=== PATIENT | female | born 1945 | race Caucasian/White ===

== ENCOUNTER → 2017-08-15 | Outpatient (CLI) | payer MEDICARE ==
[~2017-08-15] MED LIST: ASPI325; ASPI325 PO; ASPI325EC PO; BAYER BACK & B1 EACH PO; BAYER BACK & BODY PO; BENA20 PO; BENADRYL25 MG PO; CARV25 PO; CEPH500 PO; DAILY VALUE1 EACH PO; DAPS100 PO; DIABETA; ERGO400 PO; FURO40 PO; Ferrous Sulfat325 M2 PO; GLYB2.5 PO; GLYB5; K-TAB ER8 MEQ PO; Lasix40 MG PO; MECL25; MECL25 PO; METF500 PO; METFORMIN HCL1000 MG; METO25 PO; METO25ER; Micro-K10 MEQ PO; OMEP20ER PO; OMEPRAZOLE MAGN20 MG PO; PARO20 PO; POTCHL10ER; POTCHL10ER PO; Percocet 5-3251 EACH PO; SIMV40; SIMV40 PO; SPIR25 PO
[2017-08-15 16:37] LABS: Bilirubin, Urine Neg (Neg); Blood, Urine 1+ (Neg); Glucose Qualitative, Urine Neg (Neg); Ketones, Urine Neg (Neg); Leukocyte Esterase, Urine 3+ (Neg); Nitrite, Urine Pos (Neg); Protein, Urine Neg (Neg); Specific Gravity, Urine 1.015 (1.003-1.022); Urobilinogen, Urine NORM (Normal)
[2017-08-15 16:52] LABS: Appearance, Urine Clear (Clear); Color, Urine Yellow (P-Yellow); White Blood Cells, Urine TNTC /hpf (0-5)
[2017-08-15 16:53] LABS: Bacteria Many /hpf; Red Blood Cells, Urine Not Seen /hpf (0-2); Squamous Epithelial Cells Few /hpf (Few)
[2017-08-15 17:29] LABS: Creatinine, Urine Random 50.6 mg/dL (27.00-270.00); Protein, Urine Random 15.5 mg/dL (0.0-11.9)
== END ==
LOC: OLS 14:14
PROVIDERS: Internal Medicine
DX: I10 Essential (primary) hypertension (principal)
CPT/HCPCS: 81001; 82570; 84156

== ENCOUNTER 2017-12-25 05:55 | Day surgery (SDC) | payer MEDICARE ==
[~2017-12-25] VITALS: Ht 154.9 cm; Wt 89.0 kg
== END 2017-12-25 12:30 | disposition home or self-care (01) ==
LOC: MHTC 05:55
PROC: 0JH606Z Insertion of Pacemaker, Dual Chamber into Chest Subcutaneous Tissue and Fascia, Open Approach (ICD-10-PCS; principal; 2017-12-25)
PROC: 02HK3JZ Insertion of Pacemaker Lead into Right Ventricle, Percutaneous Approach (ICD-10-PCS; principal; 2017-12-25)
PROC: 02H63JZ Insertion of Pacemaker Lead into Right Atrium, Percutaneous Approach (ICD-10-PCS; principal; 2017-12-25)
DX: I49.5 Sick sinus syndrome (principal); R00.1 Bradycardia, unspecified; I10 Essential (primary) hypertension; E11.9 Type 2 diabetes mellitus without complications; I25.10 Atherosclerotic heart disease of native coronary artery without angina pectoris
CPT/HCPCS: 33208; 71046; 93005; 93010; 99152; 99153; C1785; C1898; J0690; J1644; J2250; J3010; J7030; J7040; Q9967

== ENCOUNTER 2021-10-20 14:14 | Emergency (ER) | payer MEDICARE ==
[~2021-10-20] VITALS: Ht 154.9 cm; Wt 82.5 kg
== END 2021-10-20 17:39 | disposition home or self-care (01) ==
LOC: ER 14:14
DX: S00.83XA Contusion of other part of head, initial encounter (principal); Z23 Encounter for immunization; W01.10XA Fall on same level from slipping, tripping and stumbling with subsequent striking against unspecified object, initial encounter; Z79.899 Other long term (current) drug therapy; Z79.84 Long term (current) use of oral hypoglycemic drugs; Z79.82 Long term (current) use of aspirin; I10 Essential (primary) hypertension; I25.10 Atherosclerotic heart disease of native coronary artery without angina pectoris; E11.9 Type 2 diabetes mellitus without complications; E78.00 Pure hypercholesterolemia, unspecified; Z87.891 Personal history of nicotine dependence
CPT/HCPCS: 70450; 72125; 90471; 90714; 99283-25

== ENCOUNTER 2021-10-27 07:58 | Day surgery (SDC) | payer MEDICARE ==
[~2021-10-27] VITALS: Ht 152.4 cm; Wt 82.0 kg
--- NOTE | 2021-10-27 09:02 | NUR ---
10/27/21 0902 W[facility] PT REPORTS "FALLING ON SIDEWALK ON 10/20/21". A RESULT OF THIS FALL PT HAS BRUISES AROUND BILATERAL EYES WITH SOME SCRAPES ON THE LEFT SIDE OF FACE AND FOREHEAD. RIGHT SIDE OF FACE HAS BRUISES BUT REMAINS INTACT. DR BATISTA AND DR KLEIN AWARE AND OKAY WITH PROCEDING.
== END 2021-10-27 09:31 | disposition home or self-care (01) ==
LOC: ORSCSDS 07:58
PROVIDERS: Ophthalmology
PROC: 08RJ3JZ Replacement of Right Lens with Synthetic Substitute, Percutaneous Approach (ICD-10-PCS; principal; 2021-10-27 09:00)
DX: H25.13 Age-related nuclear cataract, bilateral (principal); I25.10 Atherosclerotic heart disease of native coronary artery without angina pectoris; E11.9 Type 2 diabetes mellitus without complications; E66.9 Obesity, unspecified; Z68.36 Body mass index [BMI] 36.0-36.9, adult; Z79.899 Other long term (current) drug therapy; Z79.82 Long term (current) use of aspirin
CPT/HCPCS: 82947; J2001; J2250; J3010; J3301; J7040; V2632

== ENCOUNTER 2021-12-06 08:01 | Day surgery (SDC) | payer MEDICARE ==
[~2021-12-06] VITALS: Ht 154.9 cm; Wt 82.0 kg
== END 2021-12-06 09:48 | disposition home or self-care (01) ==
LOC: ORSCSDS 08:01
PROVIDERS: Ophthalmology
PROC: 08RK3JZ Replacement of Left Lens with Synthetic Substitute, Percutaneous Approach (ICD-10-PCS; principal; 2021-12-06 09:00)
DX: H25.12 Age-related nuclear cataract, left eye (principal); H21.81 Floppy iris syndrome; I25.10 Atherosclerotic heart disease of native coronary artery without angina pectoris; E11.9 Type 2 diabetes mellitus without complications; I10 Essential (primary) hypertension; E78.00 Pure hypercholesterolemia, unspecified; Z95.0 Presence of cardiac pacemaker; Z79.899 Other long term (current) drug therapy; Z79.82 Long term (current) use of aspirin
CPT/HCPCS: 82947; J2001; J2250; J3010; J3301; J7040; V2632

== ENCOUNTER → 2022-01-20 | Outpatient (CLI) | payer MEDICARE ==
[2022-01-20 18:21] LABS: Protein, Urine Quantitative 19.7 mg/dL (0.0-11.9)
== END | disposition home or self-care (01) ==
LOC: LAB SHORT 10:11 → LAB 10:11
PROVIDERS: Physician Assistant
DX: R80.9 Proteinuria, unspecified (principal)
CPT/HCPCS: 81050; 84156

== ENCOUNTER → 2023-04-11 | Outpatient (CLI) | payer MEDICARE ==
[2023-04-11 19:33] LABS: Creatinine, Urine Random 22.3 mg/dL (27.00-270.00); Protein, Urine Random 19.4 mg/dL (0.0-11.9); Protein/Creat Ratio, Ur Random 0.9
== END | disposition home or self-care (01) ==
LOC: LAB 15:32 → LAB SHORT 15:32 → LAB FUT 10-25 14:10
PROVIDERS: Internal Medicine Nephrology
DX: N18.31 Chronic kidney disease, stage 3a (principal)
CPT/HCPCS: 82570; 84156

== ENCOUNTER → 2024-04-20 | Outpatient (CLI) | payer MEDICARE ==
[2024-04-22 16:16] LABS: Stool Occult Bld Immuno 1 Positive (NEGATIVE); Stool Occult Bld Immuno 2 Positive (NEGATIVE); Stool Occult Bld Immuno 3 Negative (NEGATIVE)
== END ==
LOC: LAB SHORT 11:20 → LAB 11:20 → LAB FUT 09-11 11:40
PROVIDERS: Registered Nurse Oncology
DX: D64.9 Anemia, unspecified (principal); N18.9 Chronic kidney disease, unspecified
CPT/HCPCS: 82274

== ENCOUNTER 2024-05-13 15:05 | Emergency (ER) | payer OTHER, MEDICARE ==
[~2024-05-13] VITALS: Ht 152.4 cm; Wt 74.8 kg
[2024-05-13 15:10] VITALS: BP 171/60
[2024-05-13] MEDS ORDERED: Diphth,Pertuss(Acell),Tet Vac 0.5 ML VIAL IM ONE (15:55)
== END 2024-05-13 16:40 | disposition home or self-care (01) ==
LOC: ER 15:05
DX: S00.31XA Abrasion of nose, initial encounter (principal); M54.2 Cervicalgia; Z87.891 Personal history of nicotine dependence; Z79.82 Long term (current) use of aspirin; Z79.899 Other long term (current) drug therapy; Z23 Encounter for immunization; Z59.89 Other problems related to housing and economic circumstances; W01.0XXA Fall on same level from slipping, tripping and stumbling without subsequent striking against object, initial encounter
CPT/HCPCS: 70450; 72125; 72128; 90471; 90715; 99283-25

== ENCOUNTER → 2024-08-01 | Outpatient (CLI) | payer MEDICARE | LOC: LAB 10:44 → LAB SHORT 10:44 → LAB FUT 07-22 13:05 | DX: D50.9 Iron deficiency anemia, unspecified (principal); D64.9 Anemia, unspecified | CPT/HCPCS: 87338 ==

== ENCOUNTER 2024-10-06 09:22 | Inpatient (IN) | payer MEDICARE ==
[~2024-10-06] VITALS: Ht 149.9 cm; Wt 89.1 kg
[~2024-10-06 09:22] MED LIST changes: -OMEPRAZOLE MAGN20 MG PO
[2024-10-06 09:56] LABS: BASOPHILS ABSOLUTE AUTO 0.04 K/mm3 (0.00-0.23); BASOPHILS PERCENT AUTO 0 % (0-2); EOSINOPHILS ABSOLUTE AUTO 0.04 K/mm3 (0.00-0.68); EOSINOPHILS PERCENT AUTO 0 % (0-6); Hematocrit 26.6 % (33.0-51.0); Hemoglobin 7.9 g/dL (11.5-16.0); IMMATURE GRAN ABSOLUTE AUTO 0.05 K/mm3 (0.00-0.10); IMMATURE GRAN PERCENT AUTO 0 % (0-1); LYMPHOCYTES ABSOLUTE AUTO 0.94 K/mm3 (0.84-5.20); LYMPHOCYTES PERCENT AUTO 8 % (21-46); MONOCYTES PERCENT AUTO 6 % (4-13); Mean Corpuscular HGB 28.7 pg (26.0-34.0); Mean Corpuscular HGB Conc 29.7 g/dL (31.5-36.5); Mean Corpuscular Volume 97 fL (80-100); Mean Platelet Volume 10.4 fL (9.1-12.4); NEUTROPHILS ABSOLUTE AUTO 9.55 K/mm3 (1.96-9.15); NEUTROPHILS PERCENT AUTO 84 % (41-73); NRBC ABSOLUTE 0.03 K/mm3 (0.00-0.02); NRBC Auto 0.3 /100 WBC (0.0-0.2); Platelet Count 206 K/mm3 (150-400); RDW Coefficient Variation 16.4 % (11.7-14.2); RDW Standard Deviation 57.2 fL (35.1-46.3); Red Blood Cell Count 2.75 M/mm3 (3.80-5.20); White Blood Cell Count 11.32 K/mm3 (4.00-11.30)
[2024-10-06] MEDS ORDERED: Aspir 8181 MG PO (10:00)
[2024-10-06] MEDS ORDERED: ENTRESTO 49 MG1 EACH PO (10:00)
[2024-10-06] MEDS ORDERED: GLUCOPHAGE1000 M1 PO (10:01)
[2024-10-06] MEDS ORDERED: GABA100 PO (10:01)
[2024-10-06 10:16] LABS: Albumin, Blood 2.5 g/dL (3.4-5.0); Albumin/Globulin Ratio 0.6 (0.8-1.8); Bilirubin, Total 0.6 mg/dL (0.1-1.0); Calcium, Blood 6.6 mg/dL (8.5-10.1); Creatinine, Blood 1.15 mg/dL (0.40-1.00); Globulin, Blood 4.3 g/dL (2.2-4.0); Potassium, Blood 5.5 mmol/L (3.5-5.5); Total Protein, Blood 6.8 g/dL (6.4-8.2)
[2024-10-06 10:27] LABS: CORONAVIRUS COVID-19 AG Negative (NEGATIVE); INFLUENZA A AG Negative (NEGATIVE); INFLUENZA B AG Negative (NEGATIVE)
[2024-10-06] MEDS ORDERED: Magnesium Sulf 2 GM/Water 50ML 50 ML IV ONE (11:00)
[2024-10-06] MEDS ORDERED: Aspirin 325 MG Tab PO ONE (11:15)
[2024-10-06 12:06] LABS: Base Excess Venous -10.6 mmol/L; Bicarbonate Venous 16.8 mmol/L (24.0-30.0); pH Blood Venous 7.38 (7.34-7.37)
[2024-10-06] MEDS ORDERED: CALCIUM GLUC IN NACL, ISO-OSM 100 ML IV ONE (12:50)
[2024-10-06] MEDS ORDERED: FLU VACC TS2024-25(6MOS UP)/PF 45 MCG/0.5 ML SYRINGE IM SCH (12:50)
[2024-10-06 13:14] LABS: BASOPHILS ABSOLUTE AUTO 0.01 K/mm3 (0.00-0.23); BASOPHILS PERCENT AUTO 0 % (0-2); EOSINOPHILS PERCENT AUTO 0 % (0-6); Hematocrit 25.9 % (33.0-51.0); Hemoglobin 7.9 g/dL (11.5-16.0); IMMATURE GRAN ABSOLUTE AUTO 0.05 K/mm3 (0.00-0.10); IMMATURE GRAN PERCENT AUTO 1 % (0-1); LYMPHOCYTES ABSOLUTE AUTO 0.32 K/mm3 (0.84-5.20); LYMPHOCYTES PERCENT AUTO 3 % (21-46); MONOCYTES ABSOLUTE AUTO 0.55 K/mm3 (0.16-1.47); MONOCYTES PERCENT AUTO 5 % (4-13); Mean Corpuscular HGB 28.5 pg (26.0-34.0); Mean Corpuscular HGB Conc 30.5 g/dL (31.5-36.5); Mean Corpuscular Volume 94 fL (80-100); NEUTROPHILS ABSOLUTE AUTO 9.73 K/mm3 (1.96-9.15); NEUTROPHILS PERCENT AUTO 91 % (41-73); Platelet Count 146 K/mm3 (150-400); RDW Coefficient Variation 16.4 % (11.7-14.2); RDW Standard Deviation 55.6 fL (35.1-46.3); Red Blood Cell Count 2.77 M/mm3 (3.80-5.20); White Blood Cell Count 10.66 K/mm3 (4.00-11.30)
[2024-10-06 13:33] LABS: Bun/Creatinine Ratio 30.2 (12.0-20.0); Calcium, Blood 6.3 mg/dL (8.5-10.1); Creatinine, Blood 1.06 mg/dL (0.40-1.00); Potassium, Blood 4.1 mmol/L (3.5-5.5)
[2024-10-06] MEDS ORDERED: Magnesium Sul 4 GM/Water100 ML 100 ML IV ONE (14:00)
[2024-10-06] MEDS ORDERED: NS 1,000 ML IV SCH (14:25)
[2024-10-06] MEDS ORDERED: Gabapentin 100 MG Cap PO PRN (14:40)
[2024-10-06 16:41] VITALS: BP 140/73
--- NOTE | 2024-10-06 18:27 | NUR ---
ADMISSION AND SHIFT SUMMARY PATIENT ADMITTED TO MEDICAL FLOOR. PATIENT ALERT AND INTERACTIVE. PATIENT ABLE TO AMBULATE TO WITH WALKER. PATIENT REPORTS HAVING DIARRHEA THE NIGHT BEFORE. FAMILY REPORTS THAT SHE IS SCHEDULED TO SEE GI IN [place] FOR AN UPPER AND LOWER ENDOSCOPY SOON. PATIENT DENIES ANY PAIN OR SHORTNESS OF BREATH AT THIS TIME. PATIENT VERY HARD OF HEARING SINCE . PATIENT READS LIPS AND CAN HEAR SOME VOICES. FAMILY AT BEDSIDE FOR ADMISSION PROCESS.
[2024-10-06 19:34] VITALS: BP 140/54
[2024-10-06] MEDS ORDERED: Sacubitril/Valsartan 24 MG-26 MG Tab PO SCH (21:00)
[2024-10-06 23:25] VITALS: BP 137/51
[2024-10-07] MEDS ORDERED: Benzonatate 100 MG Cap PO PRN (02:10)
[2024-10-07 03:56] VITALS: BP 124/83
[2024-10-07 05:51] LABS: Hematocrit 23.9 % (33.0-51.0); Hemoglobin 7.3 g/dL (11.5-16.0); Mean Corpuscular HGB Conc 30.5 g/dL (31.5-36.5); Mean Corpuscular Volume 92 fL (80-100); Mean Platelet Volume 10.1 fL (9.1-12.4); NRBC ABSOLUTE 0.02 K/mm3 (0.00-0.02); NRBC Auto 0.3 /100 WBC (0.0-0.2); Platelet Count 156 K/mm3 (150-400); RDW Coefficient Variation 16.9 % (11.7-14.2); RDW Standard Deviation 55.8 fL (35.1-46.3); Red Blood Cell Count 2.61 M/mm3 (3.80-5.20); White Blood Cell Count 7.76 K/mm3 (4.00-11.30)
[2024-10-07] MEDS ORDERED: Omeprazole 20 MG CapCR PO SCH (06:00)
[2024-10-07 06:13] LABS: BAND PERCENT MAN 5 % (0-8); BASOPHILS PERCENT MAN 0 % (0-2); EOSINOPHILS PERCENT MAN 0 % (0-6); LYMPHOCYTES ABSOLUTE MAN 0.54 K/mm3 (0.84-5.20); LYMPHOCYTES PERCENT MAN 7 % (21-46); MONOCYTES ABSOLUTE MAN 0.15 K/mm3 (0.16-1.47); MONOCYTES PERCENT MAN 2 % (4-13); NEUTROPHILS ABSOLUTE MAN 7.06 K/mm3 (1.96-9.15); SEG NEUTROPHILS PERCENT MAN 86 % (41-73); TOTAL CELLS COUNTED 100
[2024-10-07 06:14] LABS: Bun/Creatinine Ratio 30.4 (12.0-20.0); Calcium, Blood 6.4 mg/dL (8.5-10.1); Creatinine, Blood 1.12 mg/dL (0.40-1.00); Potassium, Blood 4.2 mmol/L (3.5-5.5)
[2024-10-07 08:01] VITALS: BP 147/68
[2024-10-07] MEDS ORDERED: Enoxaparin 40 MG/0.4 ML SYR SC SCH (09:00)
[2024-10-07] MEDS ORDERED: Aspirin 81 MG TabEC PO SCH (09:00)
[2024-10-07] MEDS ORDERED: Insulin Human Lispro 100 Units/ML 3ML Syringe SC SCH ×2 (09:00→12:05)
[2024-10-07] MEDS ORDERED: Carvedilol 25 MG Tab PO SCH (09:00)
[2024-10-07] MEDS ORDERED: Pravastatin Sodium 20 MG Tab PO SCH (09:00)
[2024-10-07 11:39] VITALS: BP 116/88
[2024-10-07 13:21] LABS: Hematocrit 23.5 % (33.0-51.0); Hemoglobin 7.2 g/dL (11.5-16.0); Mean Corpuscular HGB 28.6 pg (26.0-34.0); Mean Corpuscular HGB Conc 30.6 g/dL (31.5-36.5); Mean Corpuscular Volume 93 fL (80-100); Mean Platelet Volume 10.3 fL (9.1-12.4); Platelet Count 143 K/mm3 (150-400); RDW Coefficient Variation 17.1 % (11.7-14.2); RDW Standard Deviation 57.1 fL (35.1-46.3); Red Blood Cell Count 2.52 M/mm3 (3.80-5.20); White Blood Cell Count 7.07 K/mm3 (4.00-11.30)
[2024-10-07 13:54] LABS: Albumin, Blood 2.3 g/dL (3.4-5.0); Albumin/Globulin Ratio 0.6 (0.8-1.8); Bilirubin, Total 0.4 mg/dL (0.1-1.0); Calcium, Blood 6.5 mg/dL (8.5-10.1); Creatinine, Blood 1.16 mg/dL (0.40-1.00); Globulin, Blood 3.8 g/dL (2.2-4.0); Magnesium, Blood 1.6 mg/dL (1.6-2.4); Potassium, Blood 4.1 mmol/L (3.5-5.5); Total Protein, Blood 6.1 g/dL (6.4-8.2)
[2024-10-07] MEDS ORDERED: CALCIUM GLUC IN NACL, ISO-OSM 100 ML IV SCH (14:30)
[2024-10-07 16:00] VITALS: BP 128/64
--- NOTE | 2024-10-07 18:38 | NUR ---
SHIFT SUMMARY PATIENT WITH NO ACUTE EVENTS DURING SHIFT SHE IS AOX4 BUT VERY HARD OF HEARING. SHE IS UP WITH SBA TO BATHROOM, UP IN CHAIR FOR MEALS. BED IN LOW POSITION, CALL LIGHT IN REACH. SHE IS ABLE TO MAKE NEEDS KNOWN.
[2024-10-07] MEDS ORDERED: Acetaminophen 500 MG Tab PO PRN (20:35)
[2024-10-07 20:38] VITALS: BP 138/82
--- NOTE | 2024-10-07 20:40 | NUR ---
NEW T-ORDERS RECEIVED FROM THE ON-CALL HOSPITALIST SALES PLANNING MANAGER.MAYRA: TYLENOL PO 500MG Q6HRS PRN. AND URINALASIS CULTURE IF INDICATED. PT C/O URINARY BURNING, FREQUENCY, INCONTINENCE, AND PAIN.
[2024-10-07 22:31] LABS: Source, Urine Clean Catch
[2024-10-07 23:29] VITALS: BP 133/58
[2024-10-08 00:04] LABS: Appearance, Urine Turbid (Clear); Bilirubin, Urine Neg (Neg); Blood, Urine 4+ (Neg); Color, Urine Yellow (P-Yellow); Glucose Qualitative, Urine Neg (Neg); Ketones, Urine Neg (Neg); Leukocyte Esterase, Urine 3+ (Neg); Nitrite, Urine Neg (Neg); Protein, Urine 3+ (Neg); Specific Gravity, Urine 1.015 (1.003-1.022); Urobilinogen, Urine NORM (Normal)
[2024-10-08 00:18] LABS: Bacteria Mod /hpf; Granular Casts 0-2 /lpf (0); Hyaline Casts 0-2 /lpf (0-2); Squamous Epithelial Cells Few /hpf (Few); White Blood Cells, Urine TNTC /hpf (0-5)
--- NOTE | 2024-10-08 00:29 | NUR ---
@0028 THIS SUPERVISOR NEWSPAPER DELIVERIES CALLED ON-CALL HOSPITALIST DR. BARRETT REGARDING PT'S UA RESULTS AVAILABLE AND PT UNCOMFORTABLE WITH SX R/T THIS. PER CONVERSTATION, WILL ADD PAIN MEDICATION ONBOARD.
[2024-10-08] MEDS ORDERED: TraMADol HCl 50 MG Tab PO PRN (00:35)
[2024-10-08] MEDS ORDERED: CefTRIAXone Sodium 1,000 MG in NS 100 ML IV SCH (00:37)
[2024-10-08] MEDS ORDERED: NS 250 ML IV PRN (00:55)
--- NOTE | 2024-10-08 02:34 | NUR ---
SHIFT SUMMARY PT STARTED ON ROCEPHIN D/T UTI. PT SYMPTOMATIC @HS WITH PAIN. MEDICATED PER EMAR WITH NEW ORDERS. PT RATES 02/15. 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 PT DENIES CHEST PAIN/PRESSURE DURING THIS SHIFT. HS B. BED AT THE LOWEST POSITION, CALL LIGHT W/I REACCH. PT IS A/O X4, ABLE TO MAKE HER NEEDS KNOWN, WALES, AND COOPERATIVE WITH CARE.
[2024-10-08 03:54] VITALS: BP 137/74
--- NOTE | 2024-10-08 05:42 | NUR ---
@0530 PT HAD UNWITNESSED FALL. PT SITTING ON THE RESTROOM FLOOR. PT REPORTS HITTING HER HEAD ON THE FLOOR. PT DENIES PAIN IN ANY AREA OF THE BODY. NO REDNESS NOTED, SKIN IS INTACT. RN BY THE BEDSIDE. RN ANSWERED THE PT'S CALL FIRST. FIRE RANGE TECHNICIAN ASSISTING WITH THE PT. ASSISTED THE PT TO STAND UP WITH THREE STAFF MEMBERS, USING GAIT BELT AND ASSISTED PT TO AMBULATE BACK TO BED USING FWW. BED ALARM FOR SAFETY. CODE INSPECTOR TC Mccann WAS NOTIFIED. NO ACUTE DISTRESS, VSS.
[2024-10-08 05:43] VITALS: BP 155/74
[2024-10-08 05:52] VITALS: BP 155/74
[2024-10-08 07:56] VITALS: BP 148/59
[2024-10-08] MEDS ORDERED: CALCIUM GLUC IN NACL, ISO-OSM 100 ML IV ONE (08:50)
[2024-10-08 15:50] VITALS: BP 132/61
[2024-10-08 16:09] LABS: BASOPHILS ABSOLUTE AUTO 0.03 K/mm3 (0.00-0.23); BASOPHILS PERCENT AUTO 1 % (0-2); EOSINOPHILS ABSOLUTE AUTO 0.04 K/mm3 (0.00-0.68); EOSINOPHILS PERCENT AUTO 1 % (0-6); Hematocrit 25.9 % (33.0-51.0); Hemoglobin 7.9 g/dL (11.5-16.0); IMMATURE GRAN ABSOLUTE AUTO 0.02 K/mm3 (0.00-0.10); IMMATURE GRAN PERCENT AUTO 0 % (0-1); LYMPHOCYTES ABSOLUTE AUTO 0.74 K/mm3 (0.84-5.20); LYMPHOCYTES PERCENT AUTO 13 % (21-46); MONOCYTES PERCENT AUTO 9 % (4-13); Mean Corpuscular HGB 28.5 pg (26.0-34.0); Mean Corpuscular HGB Conc 30.5 g/dL (31.5-36.5); Mean Corpuscular Volume 94 fL (80-100); Mean Platelet Volume 10.6 fL (9.1-12.4); NEUTROPHILS ABSOLUTE AUTO 4.24 K/mm3 (1.96-9.15); NEUTROPHILS PERCENT AUTO 76 % (41-73); Platelet Count 174 K/mm3 (150-400); RDW Coefficient Variation 17.2 % (11.7-14.2); RDW Standard Deviation 57.4 fL (35.1-46.3); Red Blood Cell Count 2.77 M/mm3 (3.80-5.20); White Blood Cell Count 5.57 K/mm3 (4.00-11.30)
[2024-10-08] MEDS ORDERED: FLUO10 PO (16:13)
[2024-10-08] MEDS ORDERED: GLIMEPIRIDE1 M2 PO (16:14)
[2024-10-08] MEDS ORDERED: FARXIGA10 MG PO (16:17)
[2024-10-08 16:30] LABS: Bun/Creatinine Ratio 31.2 (12.0-20.0); Calcium, Blood 7.9 mg/dL (8.5-10.1); Creatinine, Blood 1.09 mg/dL (0.40-1.00); Potassium, Blood 4.4 mmol/L (3.5-5.5)
[2024-10-08] MEDS ORDERED: Insulin Human Lispro 100 Units/ML 3ML Syringe SC SCH (16:30)
[2024-10-08] MEDS ORDERED: Insulin Glargine-Yfgn 100 Unit/mL 3 ML SYR SC SCH (18:00)
--- NOTE | 2024-10-08 18:44 | NUR ---
PATIENT A.OX4, UP WITH FWW AND 1PA. VSS, ON RA. ACHS BLOOD SUGARS, COVERAGE PER SLIDING SCALE. REPORTS SOME PAIN TO L KNEE AFTER FALL LAST NIGHT, SMALL ABRASION NOTED. WORKED WITH PT TODAY. 1ST DEGREE BLOCK ON TELE, AV PACED. DENIES ANY CP OR PRESSURE. PACEMAKER INTERROGATED THIS AFTERNOON, NO ISSUES REPORTED. PATIENT PLEASANT AND COOPERATIVE WITH CARE, CALLS APPROPRIATLELY FOR ASSISTANCE.
[2024-10-08] MEDS ORDERED: Vitamin D1000 UNI1 PO (19:07)
[2024-10-08 19:55] VITALS: BP 133/74
[2024-10-09 00:42] VITALS: BP 152/66
--- NOTE | 2024-10-09 04:29 | NUR ---
SHIFT SUMMARY: PT AOX4 CALLS APPROPRIATELY AND ABLE TO MAKE NEEDS KNOWN. VERY [place] READS LIPS WELL. ABLE TO STAND PIVOT TO BSC 1PA. TOLLERATING MEDICATIONS WELL. COMPLAINED OF SOME LEG "DISCOMFORT" MEDICATED PER EMR. PT VERY PLEASANT, AND COOPERATIVE IN CARE, ABLE TO PERFORM OWN ADLS. NO ACUTE EVENTS OVERNIGHT. DENIES CP AND SOB. NO ACUTE EVENTS OVERNIGHT. PT IN BED SLEEPING, BED IN LOWEST POSITION, CALL LIGHT IN REACH. CONTINUING CARE.
[2024-10-09 06:31] LABS: Albumin, Blood 2.3 g/dL (3.4-5.0); Anion Gap 12 mmol/L (3-11); Blood Urea Nitrogen 33 mg/dL (8-24); Bun/Creatinine Ratio 33.6 (12.0-20.0); CO2, Blood 21 mmol/L (21-32); Calcium, Blood 7.9 mg/dL (8.5-10.1); Chloride, Blood 104 mmol/L (98-108); Creatinine, Blood 0.98 mg/dL (0.40-1.00); Glomerular Filtration Rate 59 (60-); Glucose, Blood 171 mg/dL (70-99); Phosphorus, Blood 2.8 mg/dL (2.5-4.9); Potassium, Blood 4.5 mmol/L (3.5-5.5); Sodium, Blood 132 mmol/L (136-145)
[2024-10-09 07:25] VITALS: BP 156/66
[2024-10-09] MEDS ORDERED: Spironolactone 12.5 MG TAB PO SCH (09:00)
[2024-10-09 13:02] VITALS: BP 124/64
[2024-10-09] MEDS ORDERED: Furosemide 40 MG Tab PO SCH (14:00)
[2024-10-09] MEDS ORDERED: Protein Supplement 30 ML UD PO SCH (14:00)
[2024-10-09] MEDS ORDERED: DiphenhydrAMINE HCL 25 MG Cap PO PRN (14:10)
[2024-10-09] MEDS ORDERED: Ketorolac Tromethamine 15mg Vial IV PRN (16:30)
--- NOTE | 2024-10-09 18:14 | NUR ---
SHIFT SUMMARY NO ACUTE CHANGES. PT A/Ox4, COOPERATIVE WITH CARE, ABLE TO MAKE NEEDS KNOWN AND USES CALL LIGHT APPROPRIATELY. PT REPORTS PAIN TO LEFT KNEE - TREATED PER EMAR. PHYSICAL THERAPY RECOMMENDED IMAGING - CT SCAN OF LEFT KNEE COMPLETED - PT UNABLE TO GET MRI DUE TO HAVING PACER. PT CONTINUES ON IV ANTIBIOTICS FOR UTI. VITALS STABLE - BP IMPROVED WITH ROUTINE MEDICATIONS. PT ON TELE - SR @ 78 (ATRIAL PACED, PVC, FIRST DEGREE HEART BLOCK, BBB). PT CURRENTLY RESTING IN BED WITH BED IN LOWEST POSITION AND CALL LIGHT WITHIN REACH.
[2024-10-09 20:56] VITALS: BP 121/49
[2024-10-10 00:25] VITALS: BP 142/65
--- NOTE | 2024-10-10 04:19 | NUR ---
SHIFT SUMMARY: PT AOX4 CALLS APPROPRIATELY AND ABLE TO MAKE NEEDS KNOWN. HAS BEEN TRANSFERING WELL TO BS GAIT STILL UNSTEADY. SLEPT WELL THROUGH MOST OF THE NIGHT. [place] BUT VERY PLEASANT. TOLERATING MEDICATIONS WELL. PT ABLE TO REPOSITION SELF IN BED, WITH SOME ASSIST. NO ACUTE EVENTS OVERNIGHT. PT IN BED SLEEPING, BED IN LOWEST POSITION, CALL LIGHT IN REACH. CONTINUING CARE.
[2024-10-10 04:32] VITALS: BP 151/68
[2024-10-10 06:20] LABS: BASOPHILS ABSOLUTE AUTO 0.02 K/mm3 (0.00-0.23); BASOPHILS PERCENT AUTO 0 % (0-2); EOSINOPHILS ABSOLUTE AUTO 0.09 K/mm3 (0.00-0.68); EOSINOPHILS PERCENT AUTO 2 % (0-6); Hematocrit 26.8 % (33.0-51.0); IMMATURE GRAN ABSOLUTE AUTO 0.03 K/mm3 (0.00-0.10); IMMATURE GRAN PERCENT AUTO 1 % (0-1); LYMPHOCYTES ABSOLUTE AUTO 0.97 K/mm3 (0.84-5.20); LYMPHOCYTES PERCENT AUTO 17 % (21-46); MONOCYTES ABSOLUTE AUTO 0.84 K/mm3 (0.16-1.47); MONOCYTES PERCENT AUTO 15 % (4-13); Mean Corpuscular HGB 28.7 pg (26.0-34.0); Mean Corpuscular HGB Conc 29.9 g/dL (31.5-36.5); Mean Corpuscular Volume 96 fL (80-100); Mean Platelet Volume 11.1 fL (9.1-12.4); NEUTROPHILS ABSOLUTE AUTO 3.73 K/mm3 (1.96-9.15); NEUTROPHILS PERCENT AUTO 66 % (41-73); NRBC ABSOLUTE 0.02 K/mm3 (0.00-0.02); NRBC Auto 0.4 /100 WBC (0.0-0.2); Platelet Count 153 K/mm3 (150-400); RDW Coefficient Variation 17.2 % (11.7-14.2); Red Blood Cell Count 2.79 M/mm3 (3.80-5.20); White Blood Cell Count 5.68 K/mm3 (4.00-11.30)
[2024-10-10 06:40] LABS: Bun/Creatinine Ratio 32.4 (12.0-20.0); Calcium, Blood 7.9 mg/dL (8.5-10.1); Creatinine, Blood 1.05 mg/dL (0.40-1.00); Magnesium, Blood 1.3 mg/dL (1.6-2.4); Phosphorus, Blood 2.7 mg/dL (2.5-4.9)
[2024-10-10 07:59] VITALS: BP 167/71
[2024-10-10] MEDS ORDERED: ACET500 PO (14:01)
[2024-10-10] MEDS ORDERED: Tessalon200 MG PO (14:02)
[2024-10-10] MEDS ORDERED: CEPH500 PO (14:03)
[2024-10-10] MEDS ORDERED: TRAM50 PO (14:03)
[2024-10-10 14:32] VITALS: BP 122/63
--- NOTE | 2024-10-10 15:48 | NUR ---
SHIFT/DISCHARGE SUMMARY: PATIENT A/OX4, PLEASANT AND COOPERATIVE c CARE. PATIENT DENIES CP/PRESSURE, GENERALIZED PAIN, SOB, N/V AND DIZZINESS. TELE DC'D PER ORDER. PATIENT RECEIVED SCHEDULED MEDS PER EMAR. VITAL SIGNS REVIEWED. PATIENT HAS GOOD APPETITE, CONTINENT OF BOWEL/BLADDER, USES BSC/BATHROOM c SBA. PATIENT HAS HAD NO COMPLAINTS OR DENIES NEW CONCERNED THIS SHIFT. PIV DC'D. PATIENT DISCHARGE HOME c [facility]. DISCHARGE INSTRUCTIONS PACKET GIVEN TO PATIENT. PATIENT AND DAUGHTER EDUCATED ON ADMITTING DX'S, NSTEMI RESOLVED, UTI POSITIVE, SELF CARE AT HOME, S/S, TX, NEW RX AND TO F/U c PCP. PATIENT AND DAUGHTER VERBALIZED UNDERSTANDING AND NO FURTHER QUESTIONS. RX WAS FAXED TO PATIENT PREFERRED [facility]. ALL PERSONAL BELONGINGS WERE SENT HOME c THE PATIENT. PATIENT LEFT THE ROOM AT 1458, TRANSPORTED VIA W/C TO PATIENT ENTRANCE.
== END 2024-10-10 15:04 | disposition home health service (06) | DRG 871 ==
LOC: ER 09:22 → ERHOLD 09:23 → ER 12:49 → MEDS 16:22
PROVIDERS: Emergency Medicine; Internal Medicine; Nurse Practitioner Acute Care; ADMIT Family Medicine
PROC: 3E03329 Introduction of Other Anti-infective into Peripheral Vein, Percutaneous Approach (ICD-10-PCS; principal; 2024-10-08)
PROC: 4B02XSZ Measurement of Cardiac Pacemaker, External Approach (ICD-10-PCS; 2024-10-08)
DX: A41.50 Gram-negative sepsis, unspecified (principal); I21.A1 Myocardial infarction type 2; N39.0 Urinary tract infection, site not specified; E87.21 Acute metabolic acidosis; I50.22 Chronic systolic (congestive) heart failure; E87.1 Hypo-osmolality and hyponatremia; D64.9 Anemia, unspecified; I25.10 Atherosclerotic heart disease of native coronary artery without angina pectoris; K21.9 Gastro-esophageal reflux disease without esophagitis; E11.65 Type 2 diabetes mellitus with hyperglycemia; E83.51 Hypocalcemia; E83.42 Hypomagnesemia; E11.40 Type 2 diabetes mellitus with diabetic neuropathy, unspecified; M71.22 Synovial cyst of popliteal space [Baker], left knee; E78.5 Hyperlipidemia, unspecified; I11.0 Hypertensive heart disease with heart failure; I49.5 Sick sinus syndrome; R94.4 Abnormal results of kidney function studies; T50.1X6A Underdosing of loop [high-ceiling] diuretics, initial encounter; S80.02XA Contusion of left knee, initial encounter; W19.XXXA Unspecified fall, initial encounter; Z91.138 Patient's unintentional underdosing of medication regimen for other reason; I25.2 Old myocardial infarction; Z95.5 Presence of coronary angioplasty implant and graft; Z79.82 Long term (current) use of aspirin; Z79.84 Long term (current) use of oral hypoglycemic drugs; Z87.891 Personal history of nicotine dependence; Z95.0 Presence of cardiac pacemaker
CPT/HCPCS: 36415; 71045; 73700; 80048; 80053; 80069; 81001; 82330; 82803; 82947; 83605; 83735; 83880; 84100; 84484; 85025; 85027; 87040; 87077; 87086; 87186; 87428-QW; 93005; 93010; 93280; 96365; 96366; 96372; 96375; 96376; 97110; 97116; 97161; 97530; 99285-25; A9270; C8929; G0378; J0612; J0696; J1650; J1815; J3475; J7030; J7050; Q9957